=== PATIENT | female | born 1995 ===

== ENCOUNTER 2018-07-16 19:36 | Emergency (ER) | payer BC ==
--- NOTE | 2018-07-16 19:43 | UC ---
Complaint Female HPI - HPI Summary HPI Summary: 23 y/o female presents to the urgent care c/o frequency and burning on urination since yesterday w/ mild pelvic pressure today. Pain on urination is 6 /10. Pt is not drinking fluids. Pt has not taking anything to alleviate symptoms. Pt denies fever, flank pain, vaginal discharge, Hx of STD's, abdominal pain, SOB, chest pain, N/V/D. LMP:07/08/2018. - History Of Current Complaint Stated Complaint: URINRY COMPLAINT Time Seen by Provider: 07/16/18 19:41 Hx Obtained From: Patient Hx Last Menstrual Period: 07/08/2018 ?: No Onset/Duration: Gradual Onset, Lasting Days - 1 day, Worse Since - today Timing: Intermittent, Lasting Seconds Severity Initially: Mild Severity Currently: Mild Pain Intensity: 4 Pain Scale Used: 0-10 Numeric Character: Burning Aggravating Factor(s): Urination Associated Signs And Symptoms: Positive: Negative. Negative: Fever, Back Pain, Nausea, Vomiting(# Of Episodes =), Genital Swelling - Risk Factors Ectopic Risk Factor: Negative Ovarian Torsion Risk Factor: Negative - Allergies/Home Medications Allergies/Adverse Reactions: Allergies Allergy/AdvReac Type Severity Reaction Status Date / Time No Known Allergies Allergy Verified 07/16/18 19:48 Home Medications: Home Medications Control 1 tab PO DAILY 07/16/18 [History Confirmed 07/16/18] PMH/Surg Hx/FS Hx/Imm Hx Previously Healthy: Yes - Pt denies PMHX - Family History Known Family History: Positive: None - Pt denies FMHx - Social History Occupation: Student Lives: With Family Review of Systems All Other Systems Reviewed And Are Negative: Yes Constitutional: Positive: Negative Skin: Positive: Negative Eyes: Positive: Negative ENT: Positive: Negative Respiratory: Positive: Negative Cardiovascular: Positive: Negative Gastrointestinal: Positive: Negative Genitourinary: Positive: Dysuria, Frequency, Urgency, Other - pelvic pressure Motor: Positive: Negative Neurovascular: Positive: Negative Musculoskeletal: Positive: Negative Neurological: Positive: Negative Psychological: Positive: Negative Is Patient Immunocompromised?: No Physical Exam - Summary Physical Exam Summary: VITAL SIGNS: Reviewed. GENERAL: Patient is a well developed and nourished female who is sitting comfortable in the examining table. Patient is not in any acute respiratory distress. HEAD AND FACE: No signs of trauma. No ecchymosis, hematomas or skull depressions. No sinus tenderness. EYES: PERRLA, EOMI x 2, No injected conjunctiva, clear watery eyes, no nystagmus. No photophobia. EARS: Hearing grossly intact. Ear canals and tympanic membranes are within normal limits. MOUTH: pharynx with no erythema, no exudates,no palatal petechiae. no B/L tonsillar enlargement Uvula in midline. NECK: Supple, trachea is midline, no lymphadenopathy, no JVD, no carotid bruit, no c-spine tenderness, neck with full ROM. CHEST: Symmetric, no tenderness at palpation LUNGS: Clear to auscultation bilaterally. No wheezing or crackles. CVS: Regular rate and rhythm, S1 and S2 present, no murmurs or gallops appreciated. ABDOMEN: Soft, non-tender. No signs of distention. No rebound no guarding, and no masses palpated. Bowel sounds are normal. BACK:no scoliosis or lesions, non tender to palpation, No B/L CVA tenderness EXTREMITIES: FROM in all major joints, no edema, no cyanosis or clubbing. NEURO: Alert and oriented x 3. No acute neurological deficits. Speech is normal and follows commands. SKIN: Dry and warm Triage Information Reviewed: Yes Complaint Female Dx - Course Course Of Treatment: 23 y/o female presents to the urgent care c/o frequency and burning on urination since yesterday w/ mild pelvic pressure today. Pain on urination is 6/10. Pt is not drinking fluids. Pt has not taking anything to alleviate symptoms. Pt denies fever, flank pain, vaginal discharge, Hx of STD's , abdominal pain, SOB, chest pain, N/V/D. LMP:07/08/2018. Hx obtained. PE:WNL, UA and test ordered. UA results: Blood trace+, Leukoesterase 2+, trace ketones. test: negative. Pt Rx Bactrim PO PO x 7 days. Pyridium 100mg PO TID x 2 days. first dose given at the clinic tonight since pharmcay closed. Advised to increase fluid intake. Urine sent for culture if any abnormality Pt will be notified for further treatment. Pt advised If symptoms do not improve to return to the urgent care or f/u with PCP. Pt understood and agreed. Left the clinic ambulating. - Differential Dx/Diagnosis Differential Diagnosis/HQI/PQRI: Cervicitis, Pelvic Inflammatory Disease, Renal Colic, Sexually Transmitted Disease, Ureteral Stone, Urinary Tract Infection Provider Diagnosis: UTI (urinary tract infection), Dysuria Discharge - Sign-Out/Discharge Documenting (check all that apply): Patient Departure - D/c home All imaging exams completed and their final reports reviewed: No Studies - Discharge Plan Condition: Stable Disposition: HOME Prescriptions: Phenazopyridine TAB* [Pyridium 100 mg TAB*] 100 mg PO TID #5 tab Sulfamethox/Trimethoprim DS* [Bactrim DS 800/160 TAB*] 1 tab PO BID #13 tab Patient Education Materials: Urinary Tract Infection in Women (ED) Referrals: [facility] [place] [facility] [place]] - 3 Days Additional Instructions: 1- Please take Bactrim PO x 7 days. Pyridium 100 mg PO TID x 2 days to alleviate urinary symptoms. Increase increase fluid intake. drink cranberry juice. 2-Urine sent for culture if any abnormality, you will be notified for further treatment. 3-If symptoms do not improve in 3 days please return to the urgent care or f/u with PCP. - Billing Disposition and Condition Condition: STABLE Disposition: Home
[2018-07-16] MEDS ORDERED: Sulfamethox/Trimethoprim DS 800/160* TAB PO ONE (19:55)
[2018-07-16 20:09] VITALS: BP 131/72
[2018-07-16] MEDS ORDERED: Phenazopyridine TAB* 100 MG ONE (20:09)
[2018-07-16] MEDS ORDERED: Phenazopyridine TAB* 100 MG PO SCH (21:00)
--- NOTE | 2018-07-19 15:29 | UC ---
- Progress Note Progress Note: 07/19/2018 Urine culture positive for E.coli. Pt Rx Bactrim PO. Sensitivity reports is positive for Bactrim No change. Vesna Chapa PA-C Course/Dx - Diagnoses Provider Diagnoses: UTI (urinary tract infection), Dysuria Discharge - Sign-Out/Discharge Documenting (check all that apply): Patient Departure - d/c home All imaging exams completed and their final reports reviewed: No Studies - Discharge Plan Condition: Stable Disposition: HOME Prescriptions: Phenazopyridine TAB* [Pyridium 100 mg TAB*] 100 mg PO TID #5 tab Sulfamethox/Trimethoprim DS* [Bactrim DS 800/160 TAB*] 1 tab PO BID #13 tab Patient Education Materials: Urinary Tract Infection in Women (ED) Referrals: [facility] [place] [facility] [Outside] - 3 Days Additional Instructions: 1- Please take Bactrim PO x 7 days. Pyridium 100 mg PO TID x 2 days to alleviate urinary symptoms. Increase increase fluid intake. drink cranberry juice. 2-Urine sent for culture if any abnormality, you will be notified for further treatment. 3-If symptoms do not improve in 3 days please return to the urgent care or f/u with PCP. - Billing Disposition and Condition Condition: STABLE Disposition: Home
== END 2018-07-16 20:15 | disposition home or self-care (01) ==
LOC: UCEAST 19:36
DX: N39.0 Urinary tract infection, site not specified (principal); Z32.02 Encounter for pregnancy test, result negative
CPT/HCPCS: 81003; 84702; 87077; 87086; 87186; 99202; A9270-GY; G0463